=== PATIENT | female | born 1985 | race Native Hawaiian/Other Pacific Islander ===

== ENCOUNTER 2019-04-18 17:40 | Outpatient (CLI) | payer OTHER ==
[2019-04-18] MEDS ORDERED: IOVERSOL 320 50 ML VIAL ONE (17:51)
[2019-04-18] MEDS ORDERED: IOVERSOL 320 100 ML VIAL IVP ONE ×2 (17:51→19:15)
--- NOTE | 2019-04-18 19:04 | CT Report ---
Reason: ABDOMINAL PAIN, RLQ Procedure Date: 04/18/2019 Accession Number: [id number] / [id number] Procedure: CT - Abdomen/Pelvis W CPT Code: FULL RESULT: EXAM: CT ABDOMEN AND PELVIS EXAM DATE: 04/18/2019 06:48 PM. CLINICAL HISTORY: ABDOMINAL PAIN, RLQ. COMPARISONS: None. TECHNIQUE: Routine helical CT imaging was performed through the abdomen and pelvis. IV contrast: 100 cc Optiray 320 IV. Enteric contrast: Yes. Reconstructions: Coronal and sagittal. In accordance with CT protocol optimization, one or more of the following dose reduction techniques were utilized for this exam: automated exposure control, adjustment of mA and/or KV based on patient size, or use of iterative reconstructive technique. FINDINGS: Lung Bases: Unremarkable. Liver: Normal. No masses. Gallbladder/Bile Ducts: The gallbladder is surgically absent. Spleen: Normal. Pancreas: Normal. Adrenal Glands: Normal. Kidneys: Normal. No masses or hydronephrosis. Peritoneal Cavity/Bowel: There is oral contrast within the stomach and small bowel. No dilated bowel or localized bowel inflammation. The appendix is well visualized and normal. Pelvic Organs: Uterus is anteverted. Both ovaries are visualized and appear normal in size for age. There is no free fluid. Vasculature: No aneurysms or other significant abnormality. Bones: No significant abnormality. Other: None. IMPRESSION: 1. Normal appendix. 2. No CT abnormality to explain right lower quadrant pain. Ovaries are normal in size. 3. Previous cholecystectomy. [facility] The call report notification system was initiated by Dr. Piotr Woodruff at 07:03 PM on 04/18/2019.
[2019-04-18] MEDS ORDERED: IOVERSOL 320 50 ML VIAL PO ONE (19:15)
== END 2019-04-18 17:41 | disposition home or self-care (01) ==
LOC: DI 17:40
PROVIDERS: ATTEND Physician Assistant Medical
DX: R10.31 Right lower quadrant pain (principal); Z90.49 Acquired absence of other specified parts of digestive tract
CPT/HCPCS: 74177; Q9967

== ENCOUNTER 2019-04-23 14:34 | Outpatient (CLI) | payer OTHER ==
[2019-04-23 18:43] LABS: ALBUMIN 4.7 g/dL (3.2-5.5); ALBUMIN/GLOBULIN RATIO 1.7 (1.0-2.2); BASOPHILS # (AUTO) 0.1 10^3/uL (0.0-0.1); BASOPHILS % (AUTO) 0.7 %; BILIRUBIN,TOTAL 1.2 mg/dL (0.2-1.0); CREATININE 0.8 mg/dL (0.4-1.0); EOSINOPHILS # (AUTO) 0.2 10^3/uL (0.0-0.7); HGB - HEMOGLOBIN 14.7 g/dL (12.0-16.0); LYMPHOCYTES # (AUTO) 1.6 10^3/uL (1.5-3.5); LYMPHOCYTES % (AUTO) 22.8 %; MEAN CORPUSCULAR HEMOGLOBIN 28.5 pg (27.0-31.0); MEAN CORPUSCULAR HGB CONC 31.7 g/dL (32.0-36.0); MEAN CORPUSCULAR VOLUME 89.9 fL (81.0-99.0); MEAN PLATELET VOLUME 9.8 fL (7.9-10.8); MONOCYTES # (AUTO) 0.6 10^3/uL (0.0-1.0); MONOCYTES % (AUTO) 7.8 %; NEUTROPHILS # (AUTO) 4.6 10^3/uL (1.5-6.6); NEUTROPHILS % (AUTO) 65.4 %; PLT - PLATELET COUNT 363 10^3/uL (130-450); RED BLOOD COUNT 5.16 10^6/uL (4.20-5.40); RED CELL DISTRIBUTION WIDTH 13.7 % (12.0-15.0); TOTAL PROTEIN 7.5 g/dL (6.7-8.2); WHITE BLOOD COUNT 7.1 x10^3/uL (4.8-10.8)
== END 2019-04-23 14:35 | disposition home or self-care (01) ==
LOC: LAB.WCP 14:34
PROVIDERS: ATTEND Physician Assistant Medical
DX: R10.31 Right lower quadrant pain (principal)
CPT/HCPCS: 36415; 80053; 83690; 85025

== ENCOUNTER 2019-04-26 14:51 | Outpatient (CLI) | payer OTHER ==
--- NOTE | 2019-04-27 15:23 | Ultrasound Report ---
Reason: ABDOMINAL PAIN,RIGHT LOWER QUADRANT Procedure Date: 04/26/2019 Accession Number: [id number] / [id number] Procedure: US - Pelvic w/Transvaginal CPT Code: FULL RESULT: EXAM: PELVIC ULTRASOUND EXAM DATE: 04/26/2019 04:58 PM. CLINICAL HISTORY: Right lower quadrant abdominal pelvic pain. COMPARISON: None. TECHNIQUE: Realtime transabdominal pelvic scan performed to identify the uterus and adnexa and as an overview of other pelvic structures, followed by transvaginal scan to provide greater detail of the uterus and adnexa, with static image documentation. FINDINGS: Uterus: 9.2 x 3.3 x 4.1 cm, volume 64 cc. Anteverted position. Normal overall size and echotexture. Masses: Anterior fundal subtle intramural fibroid 1.4 x 0.9 x 0.9 cm. Endometrium: 2 mm. Normal. Cervix: Multiple small nabothian cysts present. Right Ovary: 3.4 x 2.4 x 3.3 cm, volume 6.5 cc. Normal echotexture and blood flow. Left Ovary: 3.3 x 1.9 x 1.7 cm, volume 6.1 cc. Normal echotexture and blood flow. Free Fluid: None. Other: None. IMPRESSION: 1. No etiology for pain identified. 2. Probable 1.4 cm intramural fibroid. [facility]
== END 2019-04-26 14:52 | disposition home or self-care (01) ==
LOC: DI 14:51
PROVIDERS: ATTEND Physician Assistant Medical
DX: R10.31 Right lower quadrant pain (principal)
CPT/HCPCS: 76830; 76856

== ENCOUNTER 2020-04-15 12:58 | Outpatient (CLI) | payer OTHER ==
[2020-04-15 18:45] LABS: BASOPHILS # (AUTO) 0.1 10^3/uL (0.0-0.1); BASOPHILS % (AUTO) 0.9 %; EOSINOPHILS # (AUTO) 0.2 10^3/uL (0.0-0.7); EOSINOPHILS % (AUTO) 3.9 %; HGB - HEMOGLOBIN 12.8 g/dL (12.0-16.0); LYMPHOCYTES # (AUTO) 2.1 10^3/uL (1.5-3.5); LYMPHOCYTES % (AUTO) 37.5 %; MEAN CORPUSCULAR HEMOGLOBIN 28.1 pg (27.0-31.0); MEAN CORPUSCULAR HGB CONC 31.2 g/dL (32.0-36.0); MEAN CORPUSCULAR VOLUME 89.9 fL (81.0-99.0); MEAN PLATELET VOLUME 9.3 fL (7.9-10.8); MONOCYTES # (AUTO) 0.5 10^3/uL (0.0-1.0); MONOCYTES % (AUTO) 9.5 %; NEUTROPHILS # (AUTO) 2.7 10^3/uL (1.5-6.6); PLT - PLATELET COUNT 284 10^3/uL (130-450); RED BLOOD COUNT 4.56 10^6/uL (4.20-5.40); RED CELL DISTRIBUTION WIDTH 14.1 % (12.0-15.0); WHITE BLOOD COUNT 5.6 x10^3/uL (4.8-10.8)
[2020-04-15 18:59] LABS: ALBUMIN 3.8 g/dL (3.2-5.5); ALBUMIN/GLOBULIN RATIO 1.4 (1.0-2.2); BILIRUBIN,TOTAL 0.8 mg/dL (0.2-1.0); CALCIUM 9.1 mg/dL (8.5-10.3); CREATININE 0.6 mg/dL (0.4-1.0); TOTAL PROTEIN 6.5 g/dL (6.7-8.2)
== END 2020-04-15 23:59 | disposition home or self-care (01) ==
LOC: LAB.WCP 12:58
PROVIDERS: ATTEND Physician Assistant Medical
DX: Z00.00 Encounter for general adult medical examination without abnormal findings (principal); I10 Essential (primary) hypertension
CPT/HCPCS: 36415; 80053; 84443; 85025

== ENCOUNTER 2021-04-22 16:05 | Outpatient (CLI) | payer OTHER ==
[2021-04-22 17:23] LABS: BASOPHILS % (AUTO) 0.4 %; EOSINOPHILS # (AUTO) 0.4 10^3/uL (0.0-0.7); EOSINOPHILS % (AUTO) 3.5 %; HCT - HEMATOCRIT 42.6 % (37.0-47.0); HGB - HEMOGLOBIN 13.9 g/dL (12.0-16.0); LYMPHOCYTES # (AUTO) 2.4 10^3/uL (1.5-3.5); MEAN CORPUSCULAR HGB CONC 32.6 g/dL (32.0-36.0); MEAN CORPUSCULAR VOLUME 82.9 fL (81.0-99.0); MONOCYTES # (AUTO) 0.8 10^3/uL (0.0-1.0); MONOCYTES % (AUTO) 7.4 %; NEUTROPHILS # (AUTO) 7.2 10^3/uL (1.5-6.6); NEUTROPHILS % (AUTO) 66.4 %; PLT - PLATELET COUNT 335 10^3/uL (130-450); RED BLOOD COUNT 5.14 10^6/uL (4.20-5.40); RED CELL DISTRIBUTION WIDTH 13.8 % (12.0-15.0); WHITE BLOOD COUNT 10.8 x10^3/uL (4.8-10.8)
--- NOTE | 2021-04-22 17:44 | Ultrasound Report ---
PROCEDURE: OB First Trimester w/TV INDICATIONS: POSTIVE TEST OUTSIDE/PRIOR DATING DATA: Last menstrual period (LMP): Unknown. LMP-based estimated date of delivery ([facility]): Not applicable First dating scan (date and location): 04/22/2021. Estimated date of delivery ([facility]) from first dating scan: 11/24/2021. TECHNIQUE: Real-time scanning was performed of the fetus and maternal pelvic organs, with image documentation. Endovaginal scanning was also performed to better visualize the fetus and maternal ovaries. COMPARISON: FINDINGS: Embryo: A single living intrauterine gestation is present with a crown-rump length of 24 mm, corresp onding to a 9 week 1 day gestation. Small perigestational hemorrhage measuring 39 mm. Heart rate: 1 67 bpm Measurement variability in dating: +/- 4 weeks by LMP, +/- 7 days by mean sac diameter (use before 6 weeks gestation if crown-rump length not able to be measured), +/- 5 days by crown-rump length (6-12 weeks gestation). Maternal organs: Ovaries demonstrates a left corpus luteal cyst measuring 24 mm.. IMPRESSION: Early single living intrauterine gestation. Reviewed by: Lorenzo Bhagat MD on 04/22/2021 5:43 PM PDT Approved by: Lorenzo Bhagat MD on 04/22/2021 5:43 PM PDT Station ID: [id number]
[2021-04-23 13:27] LABS: HEPATITIS C ANTIBODY NON-REACTIVE (NON-REACTIVE)
[2021-04-23 13:28] LABS: HEPATITIS B SURFACE ANTIGEN NON-REACTIVE (NON-REACTIVE)
[2021-04-23 13:41] LABS: HIV AG/AB 4TH GEN NON-REACTIVE (NON-REACTIVE)
== END 2021-04-22 16:06 | disposition home or self-care (01) ==
LOC: DI 16:05 → LAB 16:06
PROVIDERS: ATTEND Obstetrics & Gynecology
DX: Z36.89 Encounter for other specified antenatal screening (principal); Z32.01 Encounter for pregnancy test, result positive
CPT/HCPCS: 36415; 85025; 86592; 86762; 86787; 86803; 86850; 86900; 86901; 87340; 87389

== ENCOUNTER 2021-05-19 08:00 | Outpatient (CLI) | payer OTHER ==
[2021-05-20 12:57] LABS: MUDS CUTOFF CONCENTRATIONS CUTOFF CONC BELOW:
[2021-05-20 13:43] LABS: BILIRUBIN,URINE NEGATIVE (NEGATIVE); GLUCOSE, URINE (UA) NEGATIVE (NEGATIVE); KETONES,URINE (UA) NEGATIVE (NEGATIVE); LEUKOCYTE ESTERASE, URINE NEGATIVE (NEGATIVE); NITRITE,URINE NEGATIVE (NEGATIVE); OCCULT BLOOD,URINE NEGATIVE (NEGATIVE); PROTEIN,URINE NEGATIVE (NEGATIVE); UROBILINOGEN,URINE 0.2 (NORMAL) E.U./dL (NORMAL)
[2021-05-20 13:47] LABS: CLARITY,URINE CLOUDY (CLEAR)
[2021-05-20 14:01] LABS: AMORPHOUS SEDIMENT,UR Marked /LPF; BACTERIA,URINE Rare /HPF (None Seen); RBC,URINE None Seen /HPF (0-5); SQUAMOUS EPITHELIAL CELL,UR RARE Squamous (<= Few); WBC,URINE 0-3 /HPF (0-5)
[2021-05-20 14:02] LABS: AMPHETAMINE SCREEN,URINE NEGATIVE (NEGATIVE); BARBITURATE SCREEN,UR NEGATIVE (NEGATIVE); BENZODIAZEPINES SCREEN, URINE NEGATIVE (NEGATIVE); COCAINE SCREEN URINE NEGATIVE (NEGATIVE); METHADONE SCREEN, URINE NEGATIVE (NEGATIVE); METHAMPHETAMINES SCREEN, URINE NEGATIVE (NEGATIVE); OPIATE SCREEN, URINE NEGATIVE (NEGATIVE); OXYCODONE SCREEN, URINE NEGATIVE (NEGATIVE); PROPOXYPHENE SCREEN, URINE NEGATIVE (NEGATIVE); THC CANNABINOID SCREEN, URINE NEGATIVE (NEGATIVE); TRICYCLIC ANTIDEPRESSANT,URINE NEGATIVE (NEGATIVE)
[2021-05-20 21:56] LABS: CHLAMYDIA TRACHOMATIS DNA NEGATIVE (NEGATIVE); NEISSERIA GONORRHOEAE DNA NEGATIVE (NEGATIVE); TRICHOMONAS VAGINALIS DNA NEGATIVE (NEGATIVE)
== END 2021-05-19 23:59 | disposition home or self-care (01) ==
LOC: LAB.WC 08:00
PROVIDERS: ATTEND Obstetrics & Gynecology
DX: O09.529 Supervision of elderly multigravida, unspecified trimester (principal); Z36.89 Encounter for other specified antenatal screening
CPT/HCPCS: 80306; 81001; 87086; 87491; 87591; 87661

== ENCOUNTER 2021-06-28 13:54 | Outpatient (CLI) | payer OTHER | END 2021-06-28 13:55 | disposition home or self-care (01) | LOC: LAB 13:54 | PROVIDERS: ATTEND Obstetrics & Gynecology | DX: O09.529 Supervision of elderly multigravida, unspecified trimester (principal) | CPT/HCPCS: 81220; 81599; 82105 ==

== ENCOUNTER 2021-07-07 18:48 | Outpatient (CLI) | payer OTHER ==
--- NOTE | 2021-07-08 11:40 | Ultrasound Report ---
PROCEDURE: OB Detailed Eval INDICATIONS: SUPERVISION OF ELDERLY MULTIGRAVIDA OUTSIDE/PRIOR DATING DATA: Last menstrual period (LMP): Unknown. LMP-based estimated date of delivery ([facility]): Unknown. First dating scan (date and location): 04/22/2021. Estimated date of delivery ([facility]) from first dating scan: 11/24/2021. The below data below was generated using the initial dating scan generated [facility] of 11/24/2021 TECHNIQUE: Real-time scanning was performed of the fetus, with image documentation and biometric measurements. COMPARISON: 04/22/2021. FINDINGS: General: A single living intrauterine gestation is present. Presentation: Variable Placenta: Placental position is anterior, without previa. Amniotic fluid index: 14.1 cm, normal for gestational age. heart rate: 157 beats per minute. Maternal cervical canal: 6.23 cm long; normal length is 2.5 cm or more. biometrics: Biparietal diameter: 4.3 cm, 19 weeks, 0 days. Head circumference: 16.76 cm, 19 weeks, 3 days Abdominal circumference: 15.5 cm, 20 weeks, 5 days Femur length: 3.04 cm, 19 weeks, 3 days. Estimated gestational age from initial scan: 20 weeks, 0 day. Composite gestational age from present scan: 19 weeks, 3 days. Estimated weight and percentile: 325.8 g, 45.1%. Measurement variability in biometric dating: +/- 10 days from 12-20 weeks gestation, +/- 2 weeks from 20-30 weeks gestation, +/- 3 weeks at 30 weeks gestation or later. Anatomic survey: Neuro: Ventricles are normal at less than 10 mm. Cisterna magna is normal at 3-11 mm. Cerebellum i s normal in size and morphology. Nuchal skin fold: Normal at less than 6 mm between 14 and 20 weeks gestational age. Face: Nose and lips, facial profile are normal. Spine: Evaluation of spine is limited due to position. Heart: 4-chambered heart is present, with normal ventricular outflow tracts. Diaphragm: Diaphragm is intact. Stomach: Left-sided stomach is present. Kidneys: There is borderline bilateral pelviectasis measures 4.4 mm on the right side and 5.2 mm on t he left side. Normal is less than 5 mm in 2nd trimester, less than 7 mm in 3rd trimester. Cord: 3 vessel cord has orthotopic insertion. Bladder: Normal in size. Extremities: Evaluation of all 4 extremities are limited due to position. IMPRESSION: 1. Single live intrauterine with fetus in variable presentation. heart rate is 157 bp m. Normal amount of amniotic fluid at 14.1 cm. Estimated weight is 325.8 g and is at 45.1%. 2. Borderline pelviectasis in bilateral kidneys as above. Evaluation of spine and all 4 extremi ties are limited due to position. Rest of the anatomic survey is within normal limits. Reviewed by: Hung Keen MD on 07/08/2021 11:38 AM PDT Approved by: Hung Keen MD on 07/08/2021 11:38 AM PDT Station ID: [id number]
== END 2021-07-07 18:49 | disposition home or self-care (01) ==
LOC: DI 18:48
PROVIDERS: ATTEND Obstetrics & Gynecology
DX: O09.522 Supervision of elderly multigravida, second trimester (principal); O35.8XX0 Maternal care for other (suspected) fetal abnormality and damage, not applicable or unspecified; Z3A.20 20 weeks gestation of pregnancy

== ENCOUNTER 2021-07-22 17:13 | Outpatient (CLI) | payer OTHER ==
--- NOTE | 2021-07-23 10:45 | Ultrasound Report ---
PROCEDURE: OB F/U or Repeat INDICATIONS: SUPERVISION OF OUTSIDE/PRIOR DATING DATA: Last menstrual period (LMP): Unknown. LMP-based estimated date of delivery ([facility]): Unknown. First dating scan (date and location): 04/22/2021. Estimated date of delivery ([facility]) from first dating scan: 11/24/2021. The below data below was generated using the ultrasound [facility] of 11/24/2021 TECHNIQUE: Real-time scanning was performed of the fetus, with image documentation and biometric measurements. COMPARISON: OB ultrasound 04/22/2021, 07/07/2021 FINDINGS: General: A single living intrauterine gestation is present. Presentation: Vertex Placenta: Placental position is anterior, without previa. Amniotic fluid index: 15.6 cm, within normal limits for gestational age. Largest pocket 4.6 cm. heart rate: 133 beats per minute. Maternal cervical canal: 4.2 cm long; normal length is 2.5 cm or more. biometrics: Estimated gestational age from initial scan: 22 weeks 1 day Other: Spine and 4 extremities are visualized and within normal limits. Right kidney pelvis measures 6.5 mm compared to 6.3 mm on prior exam. This is compared to 4.4 and 5.2 cm. IMPRESSION: 1. Single live intrauterine . 2. Follow-up anatomy is within normal limits. 3. Persistent, slightly progressive pelviectasis. Reviewed by: Celi Coello MD on 07/23/2021 10:43 AM PDT Approved by: Celi Coello MD on 07/23/2021 10:43 AM PDT Station ID: [id number]
== END 2021-07-22 17:14 | disposition home or self-care (01) ==
LOC: DI 17:13
PROVIDERS: ATTEND Obstetrics & Gynecology
DX: O09.522 Supervision of elderly multigravida, second trimester (principal); Z3A.22 22 weeks gestation of pregnancy